=== PATIENT | female | born 1980 | race Hispanic/Latino ===

== ENCOUNTER 2019-07-25 06:30 | Inpatient (IN) | payer OTHER ==
[~2019-07-25] VITALS: Ht 165.1 cm; Wt 93.9 kg
[2019-07-25 21:02] VITALS: BP 111/68
[2019-07-27] MEDS ORDERED: LACTATED RINGERS 1000ML 1,000 ML IV SCH (08:15)
[2019-07-27] MEDS ORDERED: CEFAZOLIN SODIUM 1 GM VIAL IVP PRN (08:15)
[2019-07-27 08:28] LABS: HEMATOCRIT 32.6 % (36-48); MEAN CORPUSCULAR HEMOGLOBIN 31.3 pg (27.0-33.0); MEAN CORPUSCULAR HGB CONC 33.8 g/dL (32.0-36.0); MEAN CORPUSCULAR VOLUME 92.5 fL (79-99); NUCLEATED RED BLOOD CELLS 0.1 % (0.0-0.19); PLATELET COUNT (AUTO) 223 K/uL (130-400); RED BLOOD CELL COUNT(AUTO) 3.53 MIL/uL (4.00-5.50); RED CELL DISTRIBUTION WIDTH 15.4 % (11.0-15.5); WHITE BLOOD COUNT (AUTO) 9.9 K/uL (4.8-10.8)
[2019-07-27] MEDS ORDERED: MEPERIDINE-PF 75 MG/ML SYG IM PRN (09:30)
[2019-07-27] MEDS ORDERED: OXYTOCIN-LR 20 UNITS/1000 ML 1,000 ML IV PRN (09:30)
[2019-07-27] MEDS ORDERED: PROMETHAZINE HCL 25 MG/ML 1ML AMPULE IM PRN (09:30)
[2019-07-27] MEDS ORDERED: SODIUM CHLORIDE 0.9% 10 ML VIAL IVP PRN (09:30)
[2019-07-27] MEDS ORDERED: OXYMETAZOLINE HCL SPRAY 15 ML BOTTLE EN PRN (10:00)
[2019-07-27 11:20] VITALS: BP 116/76
[2019-07-27] MEDS ORDERED: ONDANSETRON HCL 4 MG/2 ML VIAL ONE (11:49)
[2019-07-27] MEDS ORDERED: PNV#1COM14 PO (14:17)
[2019-07-27] MEDS ORDERED: GUAIF10 PO (14:19)
[2019-07-27 14:31] LABS: HEMATOCRIT 35.8 % (36-48)
[2019-07-27] MEDS ORDERED: NALOXONE HCL 0.4 MG/1 ML ML IVP PRN ×3 (14:45)
[2019-07-27] MEDS ORDERED: EPHEDRINE SULFATE 50 MG/ML AMPULE IVP PRN (14:45)
[2019-07-27] MEDS: DiphenhydrAMINE HCL 50 MG/ML VIAL IVP PRN ×2 (14:52→21:13)
[2019-07-27 16:46] VITALS: BP 118/59
[2019-07-27] MEDS: DEXTROSE 5 %-0.45 % NACL 1,000 ML IV PRN (17:27)
[2019-07-27] MEDS: ONDANSETRON HCL 4 MG/2 ML VIAL IVP PRN (17:27)
[2019-07-27 19:14] VITALS: BP 111/68
[2019-07-27 23:15] VITALS: BP 106/56
[2019-07-28] MEDS: DEXTROSE 5 %-0.45 % NACL 1,000 ML IV PRN ×2 (00:21→08:00)
[2019-07-28] MEDS: ONDANSETRON HCL 4 MG/2 ML VIAL IVP PRN ×2 (00:21→07:45)
[2019-07-28 03:04] VITALS: BP 101/63
[2019-07-28 06:15] LABS: HEMATOCRIT 30.9 % (36-48); MEAN CORPUSCULAR HEMOGLOBIN 31.3 pg (27.0-33.0); MEAN CORPUSCULAR HGB CONC 33.7 g/dL (32.0-36.0); MEAN CORPUSCULAR VOLUME 92.9 fL (79-99); PLATELET COUNT (AUTO) 238 K/uL (130-400); RED BLOOD CELL COUNT(AUTO) 3.33 MIL/uL (4.00-5.50); RED CELL DISTRIBUTION WIDTH 15.6 % (11.0-15.5); WHITE BLOOD COUNT (AUTO) 10.5 K/uL (4.8-10.8)
--- NOTE | 2019-07-28 06:25 | NUR ---
gupta catheter dcd, tip intact, pericare done, incisional dressing removed, incision is dry and intact, applied telfa dressing, applied abdominal binder. assisted to bedside chair, pt tolerated well. informed to call for assistance to the bathroom, pt voiced understanding. Addendum: 07/28/19 at 0642 by REY MCGREGOR RN Amended: Links added.
[2019-07-28] MEDS ORDERED: HYDROCODONE/ACETAMINOPHEN 5/325 MG TAB PO PRN (06:30)
[2019-07-28] MEDS ORDERED: ACETAMINOPHEN EXTRA STRENGTH 500 MG TABLET PO PRN (06:30)
[2019-07-28] MEDS ORDERED: BISACODYL 10 MG SUPP.RECT RC PRN (06:30)
[2019-07-28] MEDS ORDERED: LANOLIN 30GM OINTMENT TP PRN (06:30)
[2019-07-28] MEDS: ACETAMINOPHEN-CODEINE 300/30MG TAB PO PRN ×2 (06:37→16:38)
[2019-07-28 06:50] VITALS: BP 113/68
[2019-07-28 07:15] LABS: HEPATITIS Bs ANTIGEN SCREEN P Negative (Negative)
[2019-07-28] MEDS: SIMETHICONE 80 MG TAB.CHEW PO PRN ×3 (09:57→20:57)
[2019-07-28] MEDS: IBUPROFEN 600 MG TABLET PO PRN ×2 (09:57→19:48)
[2019-07-28] MEDS: DOCUSATE SODIUM 100 MG CAP PO SCH ×2 (09:57→20:56)
[2019-07-28] MEDS ORDERED: DIPH,PERTUSS(ACELL),TET VAC/PF 0.5 ML VIAL IM SCH (10:00)
[2019-07-28 12:45] VITALS: BP 114/65
[2019-07-28 16:25] VITALS: BP 135/61
--- NOTE | 2019-07-28 17:30 | NUR ---
ROOM CHANGE PT TRANSFERRED FROM ROOM 124 TO 111. AMBULATED IN HALLWAY AND TOLERATED WELL. NO COMPLAINTS AT THIS TIME.
[2019-07-28 19:48] VITALS: BP 121/72
[2019-07-29 00:05] VITALS: BP 114/60
[2019-07-29 03:38] VITALS: BP 114/72
[2019-07-29] MEDS: ACETAMINOPHEN-CODEINE 300/30MG TAB PO PRN ×2 (03:38→12:33)
[2019-07-29 07:28] VITALS: BP 125/79
[2019-07-29] MEDS: SIMETHICONE 80 MG TAB.CHEW PO PRN ×2 (08:23→13:53)
[2019-07-29] MEDS: IBUPROFEN 600 MG TABLET PO PRN (08:25)
[2019-07-29] MEDS: DOCUSATE SODIUM 100 MG CAP PO SCH ×2 (09:00→13:53)
--- NOTE | 2019-07-29 10:00 | NUR ---
DR. AVENDANO ROUNDED FOR DR. SOLIZ AND DISCHARGED PT TO HOME. CIELO STABLE.
[2019-07-29 11:29] VITALS: BP 117/70
--- NOTE | 2019-07-29 12:30 | NUR ---
C/O SEVERE INCISIONAL PAIN AND WAS MEDICATED WITH TYLENOL #3 X 2 TABS. PATIENT VERBALIZED DOING WELL OTHER TEJEDA AND SHOWERED AND TOLERATED ACTIVITY WELL.
--- NOTE | 2019-07-29 16:05 | NUR ---
PATIENT WAS TAKEN VIA W/C TO FAMILY VEHICLE AND WAS DISCHARGE TO HER SPOUSE WITH BABY BOTH IN STABLE CONDITION.
== END 2019-07-29 16:05 | disposition home or self-care (01) | DRG 785 ==
LOC: PREINTOOBSV 06:30 → EDSTATUS 15:00 → LDH 07-27 06:32 → OBSVTOIN 07-27 06:32 → WSH 07-27 12:00
PROVIDERS: ADMIT Obstetrics & Gynecology; ATTEND Obstetrics & Gynecology
PROC: 0UB70ZZ Excision of Bilateral Fallopian Tubes, Open Approach (ICD-10-PCS; 2019-07-27)
PROC: 10D00Z1 Extraction of Products of Conception, Low, Open Approach (ICD-10-PCS; principal; 2019-07-27 09:00)
PROC: 3E0234Z Introduction of Serum, Toxoid and Vaccine into Muscle, Percutaneous Approach (ICD-10-PCS; 2019-07-28)
DX: O34.211 Maternal care for low transverse scar from previous cesarean delivery (principal); O99.02 Anemia complicating childbirth; Z30.2 Encounter for sterilization; Z37.0 Single live birth; Z3A.38 38 weeks gestation of pregnancy; Z23 Encounter for immunization
CPT/HCPCS: 36415; 59510; 85014; 85018; 85027; 86592; 86701; 86850; 86900; 86901; 87340; 87390; 90715; A4344; A4450; A4606; G0378; J0690; J1200; J2405; J2590; J7120